=== PATIENT | female | born 1995 | race Two or more races ===

== ENCOUNTER 2017-03-19 14:51 | Emergency (ER) | payer MEDICAID ==
--- NOTE | 2017-03-19 16:00 | ED Physician Documentation ---
PD HPI ABD PAIN - Stated complaint Stated Complaint: ABD PX - Chief complaint Chief Complaint: Abd Pain - History obtained from History obtained from: Patient - History of Present Illness Timing - onset: How many days ago (3) Timing - duration: Days (3) Timing - details: Gradual onset Pain level max: 6 Pain level now: 4 Quality: Aching, Pain Location: Periumbilical (started periumbilical and moved to the RLQ) Radiation: Other (non-radiating) Improved by: Laying still Worsened by: Moving, Palpation Associated symptoms: Nausea. No: Fever, Vomiting, Hematemesis, Diarrhea, Constipation, Melena, Hematochezia, Dysuria, Hematuria, Chest pain, Vaginal bleeding, Vaginal dc Similar symptoms before: Has not had sx before Recently seen: Clinic (sent from clinic today for melissa morgan.) - Additional information Additional information: last ate yesterday, drank water 2 hrs [employer]. Review of Systems Ten Systems: 10 systems reviewed and negative Constitutional: denies: Fever, Chills Nose: denies: Rhinorrhea / runny nose, Congestion Throat: denies: Sore throat Cardiac: denies: Chest pain / pressure Respiratory: denies: Cough : reports: Control (nexplanon). denies: Dysuria, Frequency, Hesitancy, Incontinent, Hematuria, Discharge, Now EGA Musculoskeletal: denies: Neck pain, Back pain Neurologic: denies: Headache PD PAST MEDICAL HISTORY - Past Medical History Past Medical History: Yes : Other - Past Surgical History Past Surgical History: Yes - Present Medications Home Medications: Ambulatory Orders Medication Instructions Recorded Confirmed Control 1 applic INFIL TITR 01/05/16 03/19/17 - Allergies Allergies/Adverse Reactions: Allergies Allergy/AdvReac Type Severity Reaction Status Date / Time No Known Drug Allergies Allergy Verified 03/19/17 15:03 - Social History Does the pt smoke?: Yes Smoking Status: Current every day smoker Does the pt drink ETOH?: Yes Does the pt have substance abuse?: No Substance Use and Type: Marijuana - Immunizations Immunizations are current?: Yes - POLST Patient has POLST: No PD ED PE NORMAL - Vitals Vital signs reviewed: Yes - General General: Alert and oriented X 3, No acute distress - HEENT HEENT: Moist mucous membranes - Neck Neck: Supple, no meningeal sign - Cardiac Cardiac: RRR - Respiratory Respiratory: No respiratory distress, Clear bilaterally - Abdomen Abdomen: Other (TTP RLQ at [place] test. + rebound. no guarding. +rovising, - psoas. - obturator. + heel tap.) - Female Female : Pt declined - Rectal Rectal: Pt declined - Back Back: No CVA TTP - Derm Derm: Warm and dry, No rash - Neuro Neuro: Alert and oriented X 3 - Psych Psych: Normal mood, Normal affect Results - Vitals Vitals: Vital Signs - 24 hr 03/19/17 03/19/17 14:58 18:26 Temperature 36.6 C 36.7 C Heart Rate 83 75 Respiratory 16 15 Rate Blood Pressure 120/71 116/57 L O2 Saturation 100 99 Oxygen O2 Source Room air - Labs Labs: Laboratory Tests 03/19/17 03/19/17 03/19/17 15:05 16:06 16:06 WBC 8.9 RBC 4.26 Hgb 13.3 Hct 39.1 MCV 91.9 MCH 31.3 H MCHC 34.1 RDW 12.7 Plt Count 260 MPV 7.9 Neut # 5.0 Lymph # 3.0 [place] # 0.8 Eos # 0.0 Baso # 0.0 Absolute Nucleated RBC 0.00 Nucleated RBCs 0.0 Sodium 139 Potassium 4.1 Chloride 107 Carbon Dioxide 25 Anion Gap 7.0 BUN 14 Creatinine 0.6 Estimated GFR (MDRD) 129 Glucose 96 Calcium 9.1 Total Bilirubin 0.6 AST 23 ALT 16 Alkaline Phosphatase 67 Total Protein 7.2 Albumin 4.6 Globulin 2.6 Albumin/Globulin Ratio 1.8 Lipase 17 L Urine Color DARK YELLOW Urine Clarity CLEAR Urine pH 6.5 Ur Specific [place] 1.020 Urine Protein NEGATIVE Urine Glucose (UA) NEGATIVE Urine Ketones TRACE Urine Occult Blood NEGATIVE Urine Nitrite NEGATIVE Urine Bilirubin NEGATIVE Urine Urobilinogen 0.2 (NORMAL) Ur Leukocyte Esterase NEGATIVE Ur Microscopic Review NOT INDICATED Urine Culture Comments NOT INDICATED Urine HCG, Qual NEGATIVE - Rads (name of study) abd/pelvis CT Radiology: Prelim report reviewed, EMP read contemporaneously, See rad report ( No dilated loops of large or small intestine. Appendix is not seen although no gross focal inflammation is identified in the right lower quadrant. Visualization is somewhat limited due to extensive unopacified bowel in this area. Nonobstructing nephrolithiasis. ) PD MEDICAL DECISION MAKING - ED course Complexity details: reviewed results, re-evaluated patient, considered differential, d/w patient ED course: Patient presents to the emergency department with right lower quadrant abdominal pain. Concern for appendicitis. CT scan was nondiagnostic, though there was no inflammation identified in the right lower quadrant. Normal white blood cell count. Discussed with the patient options including observation, having the surgeon, and evaluate her in the emergency department or allowing her to return in 12-24 hours if her symptoms worsen. Patient elects to go home at this time and states she will return if she worsens. There does appear to be a large amount of stool in the right lower quadrant, magnesium citrate was given here. Patient declines a pelvic exam. No evidence of ovarian torsion. Tolerating p.o. without difficulty in the emergency department and she does feel hungry. Patient counseled regarding signs and symptoms for which I believe and urgent re-evaluation would be necessary. Patient with good understanding of and agreement to plan and is comfortable going home at this time This document was made in part using voice recognition software. While efforts are made to proofread this document, sound alike and grammatical errors may occur. Departure - Departure Disposition: 01 Home, Self Care Clinical Impression: Abdominal pain Qualifiers: Abdominal location: generalized Qualified Code(s): R10.84 - Generalized abdominal pain Condition: Good Instructions: ED Abdominal Pain Unkn Cause Follow-Up: your,doctor in 3 days [Other] Comments: Return if you worsen. The cause of your symptoms is unclear. Your appendix is not visualized on the CT scan tonight, but we do not see any evidence of inflammation. If you do not improve in the next 12-24 hours, you need to return for further evaluation. Return sooner if you worsen. Discharge Date/Time: 03/19/17 18:55
[2017-03-19 16:01] LABS: BILIRUBIN,URINE NEGATIVE (NEGATIVE); PH,URINE 6.5 PH (5.0-7.5)
[2017-03-19 16:03] LABS: UA CHARGE (STRIP ONLY) YES; UR CULTURE IF IND NOT INDICATED
[2017-03-19 16:04] LABS: HCG UR QUAL NEGATIVE
[2017-03-19] MEDS: SODIUM CHLORIDE 0.9% 1,000 ML IV ONE (16:09)
[2017-03-19 16:17] LABS: BASOPHILS % (AUTO) 0.5 %; EOSINOPHILS % (AUTO) 0.5 %; HCT - HEMATOCRIT 39.1 % (37.0-47.0); HGB - HEMOGLOBIN 13.3 g/dL (12.0-16.0); LYMPHOCYTES % (AUTO) 33.7 %; MEAN CORPUSCULAR HEMOGLOBIN 31.3 pg (27.0-31.0); MEAN CORPUSCULAR HGB CONC 34.1 g/dL (32.0-36.0); MEAN CORPUSCULAR VOLUME 91.9 fL (81.0-99.0); MEAN PLATELET VOLUME 7.9 fL (7.9-10.8); MONOCYTES # (AUTO) 0.8 10^3/uL (0.0-1.0); MONOCYTES % (AUTO) 8.8 %; NEUTROPHILS % (AUTO) 56.5 %; RED BLOOD COUNT 4.26 10^6/uL (4.20-5.40); RED CELL DISTRIBUTION WIDTH 12.7 % (12.0-15.0); UNCORRECTED WHITE BLOOD COUNT 8.9 x10^3/uL; WHITE BLOOD COUNT 8.9 x10^3/uL (4.8-10.8)
[2017-03-19 16:27] LABS: ALBUMIN/GLOBULIN RATIO 1.8 (1.0-2.2); BILIRUBIN,TOTAL 0.6 mg/dL (0.2-1.0); CALCIUM 9.1 mg/dL (8.5-10.3); CREATININE 0.6 mg/dL (0.4-1.0); POTASSIUM 4.1 mmol/L (3.5-5.0); TOTAL PROTEIN 7.2 g/dL (6.7-8.2)
[2017-03-19] MEDS: IOPAMIDOL-300 100 ML VIAL IVP ONE (17:09)
[2017-03-19 18:27] VITALS: BP 116/57
--- NOTE | 2017-03-19 18:34 | CT Preliminary Report ---
Exam: CT Abdomen/Pelvis W/ IMPRESSION: 1. No dilated loops of large or small intestine. Appendix is not seen although no gross focal inflamm ation is identified in the right lower quadrant. Visualization is somewhat limited due to extensive u nopacified bowel in this area. 2. Nonobstructing nephrolithiasis. [facility] SITE ID: [id number]
--- NOTE | 2017-03-19 18:37 | CT Report ---
EXAM: CT ABDOMEN AND PELVIS EXAM DATE: 03/19/2017 05:11 PM. CLINICAL HISTORY: Right lower quadrant abdominal pain COMPARISONS: Abdomen and pelvis CT 03/28/2015. TECHNIQUE: Routine helical CT imaging was performed through the abdomen and pelvis. IV contrast: 100 cc Isovue-300. Enteric contrast: No. Reconstructions: Coronal and sagittal. In accordance with CT protocol optimization, one or more of the following dose reduction techniques w ere utilized for this exam: automated exposure control, adjustment of mA and/or KV based on patient s ize, or use of iterative reconstructive technique. FINDINGS: Lung Bases: Unremarkable. Liver: Normal. No masses. Gallbladder/Bile Ducts: Unremarkable. Spleen: Normal. Pancreas: Normal. Adrenal Glands: Normal. Kidneys: Symmetric renal enhancement with bilateral cysts redemonstrated. 2 mm nonobstructing stone l ower pole right kidney. Peritoneal Cavity/Bowel: The stomach is unremarkable. There are no dilated loops of large or small in testine. The appendix is not well seen with multiple unopacified loops of bowel within the pelvis. Pelvic Organs: Normal. The bladder and visualized pelvic organs are within normal limits. Vasculature: No aneurysms or other significant abnormality. Bones: No significant abnormality. Other: None. IMPRESSION: 1. No dilated loops of large or small intestine. Appendix is not seen although no gross focal inflamm ation is identified in the right lower quadrant. Visualization is somewhat limited due to extensive u nopacified bowel in this area. 2. Nonobstructing nephrolithiasis. [facility] Referring Provider Line: [phone] SITE ID: [id number]
[2017-03-19] MEDS ORDERED: MAGNESIUM CITRATE 296 ML BOTTLE ONE (18:43)
[2017-03-19] MEDS: MAGNESIUM CITRATE 296 ML BOTTLE PO STA (18:45)
== END 2017-03-19 18:55 | disposition home or self-care (01) ==
LOC: ED 14:51
DX: R10.33 Periumbilical pain (principal); F17.200 Nicotine dependence, unspecified, uncomplicated
CPT/HCPCS: 74177; 80053; 81001; 81003; 81025; 83690; 85025; 87086; 99283; 99284

== ENCOUNTER 2017-06-22 08:02 | Emergency (ER) | payer MEDICAID ==
[2017-06-22 08:37] LABS: BILIRUBIN,URINE NEGATIVE (NEGATIVE)
--- NOTE | 2017-06-22 08:42 | ED Physician Documentation ---
PD HPI ABD PAIN - Stated complaint Stated Complaint: SEVERE KIDNEY PX - Chief complaint Chief Complaint: Abd Pain - History obtained from History obtained from: Patient - Additional information Additional information: Patient is a 21-year-old female with history of possible potty cystic kidney disease. Polycystic kidney disease. She presents with a complaint of right- sided flank pain onset this morning acutely. She complains of nausea without vomiting. There is no preceding complaints and she has no fever or chills although on occasion she has felt diaphoretic. There is no lower urinary symptoms she denies the possibility of being . There is no complaints of gynecologic or lower abdominal pain. Review of systems: For pertinent positive and negatives in the review of systems please see the history of present illness, otherwise all other systems have been reviewed and are negative. Dragon disclaimer: Parts of this medical record were created using voice recognition technology. Because of the inherent limitations of this system, occasional same sounding word substitutions do occur and persist despite proofreading. Please read the document for context. Review of Systems Constitutional: denies: Fever, Chills GI: reports: Abdominal Pain, Nausea. denies: Abdominal Swelling PD PAST MEDICAL HISTORY - Past Medical History : Other Other Past Medical History: cystic kidney disease - Past Surgical History Past Surgical History: Yes - Present Medications Home Medications: Ambulatory Orders Medication Instructions Recorded Confirmed Ibuprofen 600 mg PO TID PRN #10 tablet 06/22/17 traMADol [Ultram] 50 mg PO Q4-6H #12 tablet 06/22/17 - Allergies Allergies/Adverse Reactions: Allergies Allergy/AdvReac Type Severity Reaction Status Date / Time No Known Drug Allergies Allergy Verified 06/22/17 08:08 - Social History Does the pt smoke?: Yes Smoking Status: Current every day smoker Does the pt drink ETOH?: Yes Does the pt have substance abuse?: No - Immunizations Immunizations are current?: Yes - POLST Patient has POLST: No PD ED PE NORMAL - General General: Alert and oriented X 3, Well developed/nourished, Other (Young female lying in the bed. She is complaining of pain to the right flank and appears uncomfortable) - HEENT HEENT: Atraumatic, PERRL - Neck Neck: Supple, no meningeal sign - Cardiac Cardiac: RRR, No murmur - Respiratory Respiratory: No respiratory distress, Clear bilaterally - Abdomen Abdomen: Normal bowel sounds, Soft, Non tender, Non distended - Back Back: No CVA TTP, No spinal TTP - Derm Derm: Normal color - Extremities Extremities: No deformity, No tenderness to palpate - Neuro Neuro: Alert and oriented X 3 Results - Vitals Vitals: Vital Signs - 24 hr 06/22/17 06/22/17 06/22/17 08:06 08:25 09:03 Temperature 35.5 C L Heart Rate 75 58 L Respiratory 26 H 16 Rate Blood Pressure 138/91 H 99/57 L O2 Saturation 100 98 06/22/17 06/22/17 11:00 12:46 Temperature Heart Rate 57 L 54 L Respiratory 16 12 Rate Blood Pressure 99/48 L 108/61 O2 Saturation 99 99 Oxygen O2 Source Room air - Labs Labs: Laboratory Tests 06/22/17 06/22/17 06/22/17 08:19 08:19 08:25 WBC 13.2 H RBC 4.32 Hgb 13.4 Hct 40.2 MCV 93.0 MCH 31.0 MCHC 33.3 RDW 12.6 Plt Count 341 MPV 7.4 L Neut # 6.1 Lymph # 5.8 H [place] # 1.1 H Eos # 0.1 Baso # 0.0 Absolute Nucleated RBC 0.01 Band Neuts % (Manual) Not Reportable Nucleated RBCs 0.1 Differential Comment MANUAL=AUTO DIFF Platelet Estimate NORMAL (130-450,000) Platelet Morphology NORMAL APPEARANCE RBC Morph Micro Appear NORMAL APPEARANCE Sodium 139 Potassium 3.5 Chloride 109 Carbon Dioxide 21 Anion Gap 9.0 BUN 13 Creatinine 0.7 Estimated GFR (MDRD) 108 Glucose 127 H Calcium 9.2 Total Bilirubin 0.7 AST 15 ALT 12 Alkaline Phosphatase 74 Total Protein 7.5 Albumin 4.5 Globulin 3.0 Albumin/Globulin Ratio 1.5 Lipase 19 L Urine Color YELLOW Urine Clarity CLEAR Urine pH 6.0 Ur Specific [place] >=1.030 H Urine Protein 30 H Urine Glucose (UA) NEGATIVE Urine Ketones NEGATIVE Urine Occult Blood LARGE H Urine Nitrite NEGATIVE Urine Bilirubin NEGATIVE Urine Urobilinogen 0.2 (NORMAL) Ur Leukocyte Esterase NEGATIVE Urine RBC TNTC H Urine WBC 4-5 Ur Squamous Epith Cells FEW Squamous Urine Bacteria Moderate H Urine Mucus Moderate Strands Ur Microscopic Review INDICATED Urine Culture Comments INDICATED Urine HCG, Qual 06/22/17 08:25 WBC RBC Hgb Hct MCV MCH MCHC RDW Plt Count MPV Neut # Lymph # [place] # Eos # Baso # Absolute Nucleated RBC Band Neuts % (Manual) Nucleated RBCs Differential Comment Platelet Estimate Platelet Morphology RBC Morph Micro Appear Sodium Potassium Chloride Carbon Dioxide Anion Gap BUN Creatinine Estimated GFR (MDRD) Glucose Calcium Total Bilirubin AST ALT Alkaline Phosphatase Total Protein Albumin Globulin Albumin/Globulin Ratio Lipase Urine Color Urine Clarity Urine pH Ur Specific [place] >1.030 Urine Protein Urine Glucose (UA) Urine Ketones Urine Occult Blood Urine Nitrite Urine Bilirubin Urine Urobilinogen Ur Leukocyte Esterase Urine RBC Urine WBC Ur Squamous Epith Cells Urine Bacteria Urine Mucus Ur Microscopic Review Urine Culture Comments Urine HCG, Qual NEGATIVE PD MEDICAL DECISION MAKING - ED course Complexity details: reviewed old records, reviewed results, re-evaluated patient , considered differential, d/w patient, d/w family ED course: And is a 89-year-old female with history of polycystic kidney disease. On [address] scan she also had a small stone consistent with nephrolithiasis however she has never had read urolithiasis. She presents with acute onset of right- sided abdominal pain starting this morning the pain is in the right flank on exam she appears uncomfortable but otherwise has a fairly benign abdominal examination. She is already had 2 [address] scans that we know about so I wanted to avoid ionizing radiations on ultrasound was done. The right kidney is without hydronephrosis and there is a good jet of urine. Her blood work is significant only for mild elevation of her white blood cell count at 13 and her urine does show evidence of dehydration and a numerous RBCs without evidence of infection. This could be related to polycystic kidney disease, the passage of a small stone or perhaps a residual small stone not causing hydronephrosis. Symptomatically the patient is much better. These findings were discussed with the patient and at this point in time she will be discharged home. Disposition: To home Clinical impression: 1. Sided flank pain with hematuria-suspect small ureterolithiasis Departure - Departure Disposition: Home, Self Care Clinical Impression: Hematuria Condition: Good Instructions: Hematuria Poss Causes, ED Abdominal Pain Unkn Cause, ED Hematuria Follow-Up: [facility] [Provider Group] Prescriptions: Ibuprofen 600 mg PO TID PRN #10 tablet PRN Reason: Pain traMADol [Ultram] 50 mg PO Q4-6H #12 tablet
[2017-06-22 08:43] LABS: UA w/ MICROSCOPIC CHARGE YES
[2017-06-22 08:47] LABS: HCG UR QUAL NEGATIVE
[2017-06-22 08:49] LABS: BASOPHILS % (AUTO) 0.3 %; EOSINOPHILS # (AUTO) 0.1 10^3/uL (0.0-0.7); EOSINOPHILS % (AUTO) 0.8 %; HCT - HEMATOCRIT 40.2 % (37.0-47.0); HGB - HEMOGLOBIN 13.4 g/dL (12.0-16.0); LYMPHOCYTES # (AUTO) 5.8 10^3/uL (1.5-3.5); LYMPHOCYTES % (AUTO) 43.9 %; MEAN CORPUSCULAR HGB CONC 33.3 g/dL (32.0-36.0); MEAN PLATELET VOLUME 7.4 fL (7.9-10.8); MONOCYTES # (AUTO) 1.1 10^3/uL (0.0-1.0); MONOCYTES % (AUTO) 8.6 %; NEUTROPHILS # (AUTO) 6.1 10^3/uL (1.5-6.6); NEUTROPHILS % (AUTO) 46.4 %; NUCLEATED RED BLOOD CELLS AUTO 0.1 /100WBC; RED BLOOD COUNT 4.32 10^6/uL (4.20-5.40); RED CELL DISTRIBUTION WIDTH 12.6 % (12.0-15.0); UNCORRECTED WHITE BLOOD COUNT 13.2 x10^3/uL; WHITE BLOOD COUNT 13.2 x10^3/uL (4.8-10.8)
[2017-06-22] MEDS ORDERED: SODIUM CHLORIDE FLUSH 0.9% 10 ML SYRINGE IVP ONE (08:51)
[2017-06-22] MEDS ORDERED: HYDROmorphone 1 MG/ML SYRINGE ONE (08:51)
[2017-06-22] MEDS ORDERED: ONDANSETRON 4 MG/2 ML VIAL ONE (08:51)
[2017-06-22] MEDS: SODIUM CHLORIDE 0.9% 1,000 ML IV ONE (08:52)
[2017-06-22 08:53] LABS: ALBUMIN/GLOBULIN RATIO 1.5 (1.0-2.2); BILIRUBIN,TOTAL 0.7 mg/dL (0.2-1.0); CALCIUM 9.2 mg/dL (8.5-10.3); CREATININE 0.7 mg/dL (0.4-1.0); POTASSIUM 3.5 mmol/L (3.5-5.0); TOTAL PROTEIN 7.5 g/dL (6.7-8.2)
[2017-06-22] MEDS: ONDANSETRON 4 MG/2 ML VIAL IVP STA (08:53)
[2017-06-22] MEDS: HYDROmorphone 1 MG/ML SYRINGE IVP STA (08:53)
[2017-06-22 09:24] LABS: UR CULTURE IF IND INDICATED
[2017-06-22 09:45] LABS: NP AUTO DIFFERENTIAL? NO; NP MAN DIFFERENTIAL? YES; PLATELET ESTIMATE, MANUAL NORMAL (130-450,000) (NORMAL); PLATELET MORPHOLOGY NORMAL APPEARANCE (NORMAL)
--- NOTE | 2017-06-22 11:14 | Ultrasound Report ---
RIGHT UPPER QUADRANT ULTRASOUND: 06/22/2017 CLINICAL INDICATION: Right-sided pain, hematuria. TECHNIQUE: Real-time scanning was performed with operations support representative static images obtained. FINDINGS: The liver measures 16 cm. Hepatic echogenicity is normal. No intrahepatic biliary dilata tion or focal parenchymal lesion is present. The common bile duct measures 4 mm. The gallbladder is normal. The right kidney measures 11.4 cm, and appears unremarkable. The right ureteral jet was vi sualized in the urinary bladder, excluding complete obstruction. IMPRESSION: NORMAL RIGHT UPPER QUADRANT ULTRASOUND. NO RIGHT HYDRONEPHROSIS. JOB #: [id number] EXT JOB #:[id number]
[2017-06-22] MEDS: KETOROLAC 30 MG/ML VIAL IVP STA (12:00)
[2017-06-22] MEDS ORDERED: KETOROLAC 30 MG/ML VIAL ONE (12:01)
[2017-06-22 13:08] VITALS: BP 106/65
== END 2017-06-22 13:10 | disposition home or self-care (01) ==
LOC: ED 08:02
DX: R31.9 Hematuria, unspecified (principal); Q61.3 Polycystic kidney, unspecified; F17.200 Nicotine dependence, unspecified, uncomplicated
CPT/HCPCS: 36415; 76705; 80053; 81001; 81025; 83690; 85025; 87086; 96361; 96374; 96375; 99284; J1170; 81003

== ENCOUNTER 2017-10-13 22:31 | Emergency (ER) | payer MEDICAID ==
[2017-10-13] MEDS ORDERED: ALBUTEROL NEB 2.5 MG/3 ML INH STA (22:40)
[2017-10-13] MEDS ORDERED: ALBUTEROL NEB 2.5 MG/3 ML INH ONE (22:52)
--- NOTE | 2017-10-13 22:55 | ED Physician Documentation ---
PD HPI URI - Stated complaint Stated Complaint: COUGH/WHEEZY - Chief complaint Chief Complaint: Resp - History obtained from History obtained from: Patient, Family - History of Present Illness Timing - onset: Yesterday Timing details: Gradual onset, Still present Associated symptoms: Nasal congestion, Rhinorrhea, Sore throat, Productive cough. No: Fever, Chills Contributing factors: Sick contact Similar symptoms before: Has not had sx before Recently seen: Not recently seen - Additional information Additional information: Patient is a 21 year old female with no significant past medical history who is presenting to the emergency department for cough and wheezing. Patient states that she drank out of the same cup as her mother who has bronchitis. Patient states that she was in the hospital so she just wanted to come to the emergency department to come get checked out. Review of Systems Constitutional: denies: Fever, Chills Eyes: denies: Decreased vision, Discharge, Irritation Ears: denies: Ear pain, Drainage/discharge Nose: reports: Congestion, Sinus pressure / pain Throat: denies: Dental pain / toothache, Sore throat Cardiac: denies: Palpitations Respiratory: reports: Cough, Wheezing GI: denies: Nausea, Vomiting : reports: Reviewed and negative Skin: denies: Rash, Lesions Musculoskeletal: denies: Neck pain, Back pain Immunocompromised: denies: Immunocompromised PD PAST MEDICAL HISTORY - Past Medical History Past Medical History: Yes : Other - Past Surgical History Past Surgical History: Yes - Present Medications Home Medications: Ambulatory Orders Medication Instructions Recorded Confirmed Ibuprofen 600 mg PO TID PRN #10 tablet 06/22/17 traMADol [Ultram] 50 mg PO Q4-6H #12 tablet 06/22/17 Albuterol Sulfate [Proventil Hfa 1 - 2 puffs INH Q4H PRN #1 inhaler 10/13/17 Inhaler] - Allergies Allergies/Adverse Reactions: Allergies Allergy/AdvReac Type Severity Reaction Status Date / Time No Known Drug Allergies Allergy Verified 10/13/17 22:40 - Social History Does the pt smoke?: Yes Smoking Status: Current every day smoker Does the pt drink ETOH?: Yes Does the pt have substance abuse?: Yes Substance Use and Type: Marijuana - Immunizations Immunizations are current?: Yes - POLST Patient has POLST: No PD ED PE NORMAL - Vitals Vital signs reviewed: Yes - General General: Alert and oriented X 3, No acute distress, Well developed/nourished - HEENT HEENT: Atraumatic, PERRL, Moist mucous membranes, Pharynx benign, Dentition benign - Neck Neck: Supple, no meningeal sign - Cardiac Cardiac: RRR, No murmur - Respiratory Respiratory: No respiratory distress, Clear bilaterally - Abdomen Abdomen: Soft, Non tender, Non distended - Derm Derm: Normal color, Warm and dry, No rash - Extremities Extremities: No deformity, Normal ROM s pain, No edema, No calf tenderness / cord - Neuro Neuro: Alert and oriented X 3, No motor deficit, No sensory deficit, Normal speech - Psych Psych: Normal mood Results - Vitals Vitals: Vital Signs - 24 hr 10/13/17 22:35 Temperature 36.9 C Heart Rate 102 H Respiratory 17 Rate Blood Pressure 145/66 H O2 Saturation 99 Oxygen O2 Source Room air PD MEDICAL DECISION MAKING - ED course Complexity details: reviewed old records, reviewed results, re-evaluated patient , considered differential, d/w patient ED course: Patient was seen and examined at bedside. patient was well appearing and in no distress. Patient was treated with a nebulizer treatment and stated that she felt a bit better. Patient had normal vital signs, and was well appearing. Further diagnostics, treatment or imaging were not indicated at this time. Patient required no further work up and was stable for discharge with outpatient follow up. Departure - Departure Disposition: 01 Home, Self Care Clinical Impression: Upper respiratory tract infection Condition: Good Instructions: ED Viral Syndrome Follow-Up: primary,care provider [Other] - As Needed Prescriptions: Albuterol Sulfate [Proventil Hfa Inhaler] 1 - 2 puffs INH Q4H PRN #1 inhaler PRN Reason: Shortness Of Air/Wheezing Comments: Your symptoms are normally viral in nature and self limited. it is important that you drink plenty of fluids and get plenty of rest. You can take over the counter cough and cold medicine and use the inhaler as needed for wheezing. It is important that you refrain from smoking or other allergens. You should follow up with your doctor if your symptoms persist. You may return to the emergency department at any time for new, worsening or uncontrollable symptoms.
[2017-10-13 23:16] VITALS: BP 130/63
== END 2017-10-13 23:15 | disposition home or self-care (01) ==
LOC: ED 22:31
DX: J06.9 Acute upper respiratory infection, unspecified (principal); F17.200 Nicotine dependence, unspecified, uncomplicated
CPT/HCPCS: 94640; 99283; J7613

== ENCOUNTER 2017-10-14 11:00 | Outpatient (CLI) | payer MEDICAID | END 2017-10-14 11:01 | disposition home or self-care (01) | LOC: LAB.R 11:00 | PROVIDERS: ATTEND Registered Nurse | DX: Z11.3 Encounter for screening for infections with a predominantly sexual mode of transmission (principal) | CPT/HCPCS: 87491; 87591 ==

== ENCOUNTER 2018-07-28 04:27 | Emergency (ER) | payer MEDICAID ==
[2018-07-28 04:53] LABS: BILIRUBIN,URINE NEGATIVE (NEGATIVE); GLUCOSE, URINE (UA) NEGATIVE (NEGATIVE); KETONES,URINE (UA) 15 mg/dL (NEGATIVE); LEUKOCYTE ESTERASE, URINE NEGATIVE (NEGATIVE); NITRITE,URINE NEGATIVE (NEGATIVE); OCCULT BLOOD,URINE NEGATIVE (NEGATIVE); PH,URINE 5.5 PH (5.0-7.5); PROTEIN,URINE NEGATIVE (NEGATIVE); UROBILINOGEN,URINE 0.2 (NORMAL) E.U./dL (NORMAL)
[2018-07-28 04:54] LABS: CLARITY,URINE CLEAR (CLEAR); HCG UR QUAL NEGATIVE
[2018-07-28] MEDS ORDERED: ONDANSETRON 4 MG/2 ML VIAL IVP STA ×2 (05:12→05:31)
[2018-07-28] MEDS ORDERED: LIDOCAINE VISCOUS 2% 15 ML UDC MM STA (05:12)
[2018-07-28] MEDS ORDERED: MAG HYDROX/AL HYDROX/SIMETH 30 ML UDC PO STA (05:13)
[2018-07-28] MEDS ORDERED: PHENobarb/HYOSCY/ATROPINE/SCOP 5 ML UDC PO STA (05:13)
[2018-07-28 05:20] LABS: ALBUMIN 4.8 g/dL (3.2-5.5); ALBUMIN/GLOBULIN RATIO 1.8 (1.0-2.2); BILIRUBIN,TOTAL 0.6 mg/dL (0.2-1.0); CALCIUM 9.3 mg/dL (8.5-10.3); CREATININE 0.5 mg/dL (0.4-1.0); TOTAL PROTEIN 7.4 g/dL (6.7-8.2)
[2018-07-28 05:24] LABS: BASOPHILS % (AUTO) 0.3 %; EOSINOPHILS % (AUTO) 2.5 %; HGB - HEMOGLOBIN 13.1 g/dL (12.0-16.0); LYMPHOCYTES % (AUTO) 20.3 %; MEAN CORPUSCULAR HEMOGLOBIN 31.1 pg (27.0-31.0); MEAN CORPUSCULAR HGB CONC 33.5 g/dL (32.0-36.0); MEAN PLATELET VOLUME 7.8 fL (7.9-10.8); MONOCYTES % (AUTO) 8.7 %; NEUTROPHILS % (AUTO) 68.2 %; PLT - PLATELET COUNT 279 10^3/uL (130-450); RED CELL DISTRIBUTION WIDTH 12.7 % (12.0-15.0); WHITE BLOOD COUNT 18.1 x10^3/uL (4.8-10.8)
[2018-07-28 05:26] LABS: MUDS CUTOFF CONCENTRATIONS CUTOFF CONC BELOW:
[2018-07-28 05:28] LABS: ABNORMAL LYMPHS % (MANUAL) 0 %; BAND NEUTROPHILS % (MANUAL) 0 %
[2018-07-28] MEDS ORDERED: SODIUM CHLORIDE 0.9% 1,000 ML IV ONE (05:31)
[2018-07-28 05:32] LABS: AMPHETAMINE SCREEN,URINE NEGATIVE (NEGATIVE); BENZODIAZEPINES SCREEN, URINE NEGATIVE (NEGATIVE); COCAINE SCREEN URINE NEGATIVE (NEGATIVE); METHADONE SCREEN, URINE NEGATIVE (NEGATIVE); METHAMPHETAMINES SCREEN, URINE NEGATIVE (NEGATIVE); OPIATE SCREEN, URINE NEGATIVE (NEGATIVE); PROPOXYPHENE SCREEN, URINE NEGATIVE (NEGATIVE); TRICYCLIC ANTIDEPRESSANT,URINE NEGATIVE (NEGATIVE)
--- NOTE | 2018-07-28 05:32 | ED Physician Documentation ---
PD HPI ABD PAIN - Stated complaint Stated Complaint: ABD PAIN - Chief complaint Chief Complaint: Abd Pain - History obtained from History obtained from: Patient - History of Present Illness Timing - onset: Yesterday Timing - details: Gradual onset, Still present Quality: Cramping, Sharp, Indigestion Location: Epigastric Worsened by: Eating Associated symptoms: Nausea. No: Fever, Vomiting, Diarrhea, Constipation Similar symptoms before: No diagnosis Recently seen: Not recently seen - Additional information Additional information: Patient is a 22 year old female who is presenting to the emergency department for abdominal pain. Patient states that the symptoms started last night after work. patient reports that the pain is epigastric in nature. patient tried eating something to help the pain but it did not help. Review of Systems Ten Systems: 10 systems reviewed and negative Constitutional: denies: Fever, Chills GI: reports: Abdominal Pain, Nausea. denies: Vomiting, Constipation, Diarrhea : denies: Dysuria, Frequency PD PAST MEDICAL HISTORY - Past Medical History Past Medical History: No : Other - Past Surgical History Past Surgical History: Yes - Present Medications Home Medications: Ambulatory Orders Medication Instructions Recorded Confirmed Ibuprofen 600 mg PO TID PRN #10 tablet 06/22/17 traMADol [Ultram] 50 mg PO Q4-6H #12 tablet 06/22/17 Albuterol Sulfate [Proventil Hfa 1 - 2 puffs INH Q4H PRN #1 inhaler 10/13/17 Inhaler] Ondansetron Odt [Zofran] 4 mg TL Q6H PRN #14 tablet 07/28/18 Phenobarb/Hyoscy/Atropine/Scop 16.2 mg PO TID #100 ml 07/28/18 [ Elixir] - Allergies Allergies/Adverse Reactions: Allergies Allergy/AdvReac Type Severity Reaction Status Date / Time No Known Drug Allergies Allergy Verified 10/13/17 22:40 - Social History Does the pt smoke?: Yes Smoking Status: Current every day smoker Does the pt drink ETOH?: Yes Does the pt have substance abuse?: Yes Substance Use and Type: Marijuana - Immunizations Immunizations are current?: Yes - POLST Patient has POLST: No PD ED PE NORMAL - Vitals Vital signs reviewed: Yes - General General: Alert and oriented X 3, Well developed/nourished - HEENT HEENT: Atraumatic - Cardiac Cardiac: RRR - Respiratory Respiratory: No respiratory distress - Abdomen Abdomen: Soft - Derm Derm: Normal color, Warm and dry - Extremities Extremities: No deformity - Neuro Neuro: Alert and oriented X 3, No motor deficit, Normal speech Eye Opening: Spontaneous Motor: Obeys Commands Verbal: Oriented GCS Score: 15 PD ED PE EXPANDED - General General: Alert, In Pain - Abdomen Abdomen: Tender to palpation, Epigastric. No: Rebound, Guarding Results - Vitals Vitals: Vital Signs - 24 hr 07/28/18 07/28/18 04:31 05:47 Temperature 36.6 C 37.0 C Heart Rate 106 H 60 Respiratory 20 12 Rate Blood Pressure 130/75 107/55 L O2 Saturation 98 98 Oxygen O2 Source Room air - Labs Labs: Laboratory Tests 07/28/18 07/28/18 07/28/18 04:40 04:40 04:40 WBC 18.1 H RBC 4.20 Hgb 13.1 Hct 39.0 MCV 93.0 MCH 31.1 H MCHC 33.5 RDW 12.7 Plt Count 279 MPV 7.8 L Neut # (Auto) Not Reportable Lymph # (Auto) Not Reportable [place] # (Auto) Not Reportable Eos # (Auto) Not Reportable Baso # (Auto) Not Reportable Absolute Nucleated RBC Not Reportable Total Counted 100 Band Neuts % (Manual) 0 Reactive Lymphs % (Man) 3 Abnorm Lymph % (Manual) 0 Nucleated RBC % Not Reportable Neutrophils # (Manual) 11.6 H Lymphocytes # (Manual) 3.1 Monocytes # (Manual) 2.0 H Eosinophils # (Manual) 1.1 H Basophils # (Manual) 0.4 H Differential Comment MANUAL DIFFERENTIAL Platelet Estimate NORMAL (130-450,000) RBC Morph Micro Appear NORMAL APPEARANCE Sodium 138 Potassium 3.6 Chloride 105 Carbon Dioxide 23 Anion Gap 10.0 BUN 13 Creatinine 0.5 Estimated GFR (MDRD) 157 Glucose 106 H Calcium 9.3 Total Bilirubin 0.6 AST 15 ALT 13 Alkaline Phosphatase 54 Total Protein 7.4 Albumin 4.8 Globulin 2.6 Albumin/Globulin Ratio 1.8 Lipase 24 Urine Color YELLOW Urine Clarity CLEAR Urine pH 5.5 Ur Specific [place] >=1.030 H Urine Protein NEGATIVE Urine Glucose (UA) NEGATIVE Urine Ketones 15 H Urine Occult Blood NEGATIVE Urine Nitrite NEGATIVE Urine Bilirubin NEGATIVE Urine Urobilinogen 0.2 (NORMAL) Ur Leukocyte Esterase NEGATIVE Ur Microscopic Review NOT INDICATED Urine Culture Comments NOT INDICATED Urine HCG, Qual NEGATIVE Urine Opiates Screen Ur Oxycodone Screen Urine Methadone Screen Ur Propoxyphene Screen Ur Barbiturates Screen Ur Tricyclics Screen Ur Phencyclidine Scrn Ur Amphetamine Screen U Methamphetamines Scrn U Benzodiazepines Scrn Urine Cocaine Screen U Cannabinoids Screen 07/28/18 04:40 WBC RBC Hgb Hct MCV MCH MCHC RDW Plt Count MPV Neut # (Auto) Lymph # (Auto) [place] # (Auto) Eos # (Auto) Baso # (Auto) Absolute Nucleated RBC Total Counted Band Neuts % (Manual) Reactive Lymphs % (Man) Abnorm Lymph % (Manual) Nucleated RBC % Neutrophils # (Manual) Lymphocytes # (Manual) Monocytes # (Manual) Eosinophils # (Manual) Basophils # (Manual) Differential Comment Platelet Estimate RBC Morph Micro Appear Sodium Potassium Chloride Carbon Dioxide Anion Gap BUN Creatinine Estimated GFR (MDRD) Glucose Calcium Total Bilirubin AST ALT Alkaline Phosphatase Total Protein Albumin Globulin Albumin/Globulin Ratio Lipase Urine Color Urine Clarity Urine pH Ur Specific [place] Urine Protein Urine Glucose (UA) Urine Ketones Urine Occult Blood Urine Nitrite Urine Bilirubin Urine Urobilinogen Ur Leukocyte Esterase Ur Microscopic Review Urine Culture Comments Urine HCG, Qual Urine Opiates Screen NEGATIVE Ur Oxycodone Screen NEGATIVE Urine Methadone Screen NEGATIVE Ur Propoxyphene Screen NEGATIVE Ur Barbiturates Screen NEGATIVE Ur Tricyclics Screen NEGATIVE Ur Phencyclidine Scrn NEGATIVE Ur Amphetamine Screen NEGATIVE U Methamphetamines Scrn NEGATIVE U Benzodiazepines Scrn NEGATIVE Urine Cocaine Screen NEGATIVE U Cannabinoids Screen POSITIVE H PD MEDICAL DECISION MAKING - ED course Complexity details: reviewed old records, reviewed results, re-evaluated patient, considered differential, d/w patient ED course: Patient was seen and examined at bedside. labs were drawn and urine ws collected. IV access was gained. Patient's UA was negative but there were ketones. Patient was treated with ns bolus, zofran, viscous lidocaine, donnatol and maalox. Patients pain improved significantly to a 2 out of 10. Patient did have a leukocytosis but no right upper quadrant pain or right lower quadrant pain. Imaging was discussed with the patient but patient has already had two CT of her abdomen. patient agreed to no imaging at this time. At discharge patient's was pain free. Patient required no further work up and was stable for discharge with outpatient follow up. - Sepsis Event Vital Signs: Vital Signs - 24 hr 07/28/18 07/28/18 04:31 05:47 Temperature 36.6 C 37.0 C Heart Rate 106 H 60 Respiratory 20 12 Rate Blood Pressure 130/75 107/55 L O2 Saturation 98 98 Oxygen O2 Source Room air Departure - Departure Disposition: 01 Home, Self Care Clinical Impression: Abdominal pain Condition: Good Instructions: ED Epigastric Pain [facility] Follow-Up: Radha Bennett ARNP [Primary Care Provider] - Within 3 Days Prescriptions: Ondansetron Odt [Zofran] 4 mg TL Q6H PRN #14 tablet PRN Reason: Nausea / Vomiting Phenobarb/Hyoscy/Atropine/Scop [ Elixir] 16.2 mg PO TID #100 ml Comments: Your symptoms are likely being caused by gastritis. You should take zofran as needed and try to stay well hydrated. You can take tylenol, maalox or donnatol as needed for pain. You should return to the emergency for fevers, right upper quadrant pain, or right lower quadrant pain.
[2018-07-28 05:33] LABS: OXYCODONE SCREEN, URINE NEGATIVE (NEGATIVE)
[2018-07-28 05:58] LABS: BASOPHILS # (MANUAL) 0.4 10^3/uL (0-0.1); BASOPHILS % (MANUAL) 2 %; DIFFERENTIAL COMMENT MANUAL DIFFERENTIAL; EOSINOPHILS # (MANUAL) 1.1 10^3/uL (0-0.7); LYMPHOCYTES # (MANUAL) 3.1 10^3/uL (1.5-3.5); LYMPHOCYTES % (MANUAL) 14 %; NEUTROPHILS # (MANUAL) 11.6 10^3/uL (1.5-6.6); NEUTROPHILS % (MANUAL) 64 %; PLATELET ESTIMATE, MANUAL NORMAL (130-450,000) (NORMAL); RBC MORPHOLOGY (MULTIPLE) NORMAL APPEARANCE (NORMAL)
[2018-07-28 06:37] VITALS: BP 104/72
== END 2018-07-28 06:43 | disposition home or self-care (01) ==
LOC: ED 04:27
DX: R10.9 Unspecified abdominal pain (principal); D72.829 Elevated white blood cell count, unspecified; R11.0 Nausea; F17.200 Nicotine dependence, unspecified, uncomplicated
CPT/HCPCS: 36415; 80053; 80306; 81003; 81025; 83690; 85025; 96361; 96374; 99283; 99284; A9270; 81001; 87086

== ENCOUNTER 2019-01-27 17:13 | Emergency (ER) | payer SELFPAY ==
[2019-01-27 20:02] LABS: BILIRUBIN,URINE NEGATIVE (NEGATIVE); GLUCOSE, URINE (UA) NEGATIVE (NEGATIVE); KETONES,URINE (UA) 40 mg/dL (NEGATIVE); LEUKOCYTE ESTERASE, URINE NEGATIVE (NEGATIVE); NITRITE,URINE NEGATIVE (NEGATIVE); OCCULT BLOOD,URINE NEGATIVE (NEGATIVE); PROTEIN,URINE NEGATIVE (NEGATIVE); UROBILINOGEN,URINE 0.2 (NORMAL) E.U./dL (NORMAL)
[2019-01-27 20:08] LABS: CLARITY,URINE CLEAR (CLEAR); HCG UR QUAL NEGATIVE
[2019-01-27] MEDS ORDERED: SODIUM CHLORIDE 0.9% 1,000 ML IV ONE ×2 (20:15→22:10)
[2019-01-27] MEDS ORDERED: ONDANSETRON 4 MG/2 ML VIAL IVP STA (20:15)
--- NOTE | 2019-01-27 20:18 | ED Physician Documentation ---
PD HPI NVD - Stated complaint Stated Complaint: VOMITING - Chief complaint Chief Complaint: Abd Pain - History obtained from History obtained from: Patient, Family - History of Present Illness Timing - onset: Yesterday Timing - duration: Days (2) Timing - details: Abrupt onset, Still present, Still present in ED Associated symptoms: Fever, Dizzy Improved by: Vomiting Similar symptoms before: Has not had sx before Recently seen: Not recently seen - Additonal information Additional information: Previously well 23-year-old female is developed fever chills sore throat and vomiting. She has had significant nausea and has been unable to keep anything down all day today. She began with symptoms yesterday. She does have a mild cough as well. Review of Systems Constitutional: reports: Fever, Chills, Myalgias, Fatigue Eyes: denies: Decreased vision Ears: denies: Ear pain Nose: reports: Rhinorrhea / runny nose, Congestion Throat: reports: Sore throat Cardiac: denies: Chest pain / pressure, Palpitations Respiratory: reports: Cough. denies: Dyspnea GI: reports: Abdominal Pain, Nausea, Vomiting : denies: Dysuria, Frequency Skin: denies: Rash Musculoskeletal: denies: Neck pain, Back pain, Extremity pain Neurologic: reports: Generalized weakness. denies: Focal weakness, Numbness PD PAST MEDICAL HISTORY - Past Medical History : Other - Past Surgical History Past Surgical History: Yes - Present Medications Home Medications: Ambulatory Orders Medication Instructions Recorded Confirmed Albuterol Sulfate [Proventil Hfa 1 - 2 puffs INH Q4H PRN #1 inhaler 10/13/17 Inhaler] Promethazine [Phenergan] 25 mg PO Q6H PRN #10 tab 01/27/19 - Allergies Allergies/Adverse Reactions: Allergies Allergy/AdvReac Type Severity Reaction Status Date / Time No Known Drug Allergies Allergy Verified 10/13/17 22:40 - Social History Does the pt smoke?: Yes Smoking Status: Current every day smoker Does the pt drink ETOH?: Yes Does the pt have substance abuse?: Yes - Immunizations Immunizations are current?: Yes - POLST Patient has POLST: No PD ED PE NORMAL - Vitals Vital signs reviewed: Yes (tachy and hypertensive ) - General General: Alert and oriented X 3, Well developed/nourished, Other (appear sick leaning over the edge of the bed to vomit) - HEENT HEENT: Atraumatic, PERRL, EOMI, Ears normal, Other (dry mucous membranes ) - Neck Neck: Supple, no meningeal sign, No bony TTP - Cardiac Cardiac: No murmur, Other (tachy to 110) - Respiratory Respiratory: No respiratory distress, Clear bilaterally - Abdomen Abdomen: Soft, Other (mild epigastric tenderness ) - Back Back: No CVA TTP, No spinal TTP - Derm Derm: Normal color, Warm and dry, No rash - Extremities Extremities: No deformity, No edema - Neuro Neuro: Alert and oriented X 3, strategy director 2-12 intact, No motor deficit, No sensory deficit, Normal speech Eye Opening: Spontaneous Motor: Obeys Commands Verbal: Oriented GCS Score: 15 - Psych Psych: Other (mood is defeated ) Results - Vitals Vitals: Vital Signs - 24 hr 01/27/19 01/27/19 01/27/19 17:29 19:45 21:41 Temperature 36.8 C Heart Rate 105 H 85 94 Respiratory 22 16 16 Rate Blood Pressure 134/95 H 121/66 93/69 O2 Saturation 100 99 100 Oxygen O2 Source Room air - Labs Labs: Laboratory Tests 01/27/19 01/27/19 01/27/19 17:30 19:39 20:21 WBC 12.1 H RBC 3.98 L Hgb 12.9 Hct 36.6 L MCV 92.0 MCH 32.5 H MCHC 35.3 RDW 12.2 Plt Count 233 MPV 7.3 L Neut # (Auto) 10.8 H Lymph # (Auto) 0.2 L [place] # (Auto) 1.1 H Eos # (Auto) 0.0 Baso # (Auto) 0.0 Absolute Nucleated RBC 0.00 Nucleated RBC % 0.0 Sodium Potassium Chloride Carbon Dioxide Anion Gap BUN Creatinine Estimated GFR (MDRD) Glucose Calcium Total Bilirubin AST ALT Alkaline Phosphatase Total Protein Albumin Globulin Albumin/Globulin Ratio Lipase Urine Color YELLOW Urine Clarity CLEAR Urine pH 7.0 Ur Specific [place] 1.020 Urine Protein NEGATIVE Urine Glucose (UA) NEGATIVE Urine Ketones 40 H Urine Occult Blood NEGATIVE Urine Nitrite NEGATIVE Urine Bilirubin NEGATIVE Urine Urobilinogen 0.2 (NORMAL) Ur Leukocyte Esterase NEGATIVE Ur Microscopic Review NOT INDICATED Urine Culture Comments NOT INDICATED Urine HCG, Qual NEGATIVE Group A Strep Rapid Negative 01/27/19 20:21 WBC RBC Hgb Hct MCV MCH MCHC RDW Plt Count MPV Neut # (Auto) Lymph # (Auto) [place] # (Auto) Eos # (Auto) Baso # (Auto) Absolute Nucleated RBC Nucleated RBC % Sodium 137 Potassium 3.8 Chloride 106 Carbon Dioxide 21 Anion Gap 10.0 BUN 11 Creatinine 0.7 Estimated GFR (MDRD) 106 Glucose 104 H Calcium 9.5 Total Bilirubin 0.6 AST 17 ALT 11 Alkaline Phosphatase 49 Total Protein 7.5 Albumin 4.9 Globulin 2.6 Albumin/Globulin Ratio 1.9 Lipase 19 L Urine Color Urine Clarity Urine pH Ur Specific [place] Urine Protein Urine Glucose (UA) Urine Ketones Urine Occult Blood Urine Nitrite Urine Bilirubin Urine Urobilinogen Ur Leukocyte Esterase Ur Microscopic Review Urine Culture Comments Urine HCG, Qual Group A Strep Rapid Procedures - IVC sono (time) 2014 Bedside IVC sono: IVC measures (cm) (1.09), IVC collapsed c insp (cm) (complete), Dehydration (est 1-2 liter deficit) PD MEDICAL DECISION MAKING - ED course Complexity details: reviewed results, re-evaluated patient, considered differential, d/w patient, d/w family ED course: 23-year-old female with acute nausea and vomiting has severe retching and sounds like she has cyclical vomiting. She does admit to use of cannabis and may be to excess. She denies use of cannabis today. Here in the emergency department she is found to be dehydrated and intravenous fluids were administered as well as Zofran. This has no effect on her vomiting. She is administered Haldol 2 mg intravenously and following this she wants to go home. Departure - Departure Disposition: 01 Home, Self Care Clinical Impression: Dehydration Vomiting Qualifiers: Vomiting type: cyclical vomiting Vomiting Intractability: non-intractable Nausea presence: with nausea Qualified Code(s): G43.A0 - Cyclical vomiting, not intractable Condition: Stable Instructions: ED Dehydration, ED Nausea Vomiting Follow-Up: [facility] [Provider Group] Prescriptions: Promethazine [Phenergan] 25 mg PO Q6H PRN #10 tab PRN Reason: Nausea / Vomiting Comments: Today it appears this severe vomiting that you have may be related to cannabis. The recommendation is to reduce or eliminate your use of cannabis.
[2019-01-27 20:26] LABS: BASOPHILS % (AUTO) 0.3 %; HGB - HEMOGLOBIN 12.9 g/dL (12.0-16.0); LYMPHOCYTES # (AUTO) 0.2 10^3/uL (1.5-3.5); LYMPHOCYTES % (AUTO) 1.8 %; MEAN CORPUSCULAR HEMOGLOBIN 32.5 pg (27.0-31.0); MEAN CORPUSCULAR HGB CONC 35.3 g/dL (32.0-36.0); MEAN PLATELET VOLUME 7.3 fL (7.9-10.8); MONOCYTES # (AUTO) 1.1 10^3/uL (0.0-1.0); NEUTROPHILS # (AUTO) 10.8 10^3/uL (1.5-6.6); NEUTROPHILS % (AUTO) 88.9 %; PLT - PLATELET COUNT 233 10^3/uL (130-450); RED BLOOD COUNT 3.98 10^6/uL (4.20-5.40); RED CELL DISTRIBUTION WIDTH 12.2 % (12.0-15.0); WHITE BLOOD COUNT 12.1 x10^3/uL (4.8-10.8)
[2019-01-27 20:39] LABS: ALBUMIN 4.9 g/dL (3.2-5.5); ALBUMIN/GLOBULIN RATIO 1.9 (1.0-2.2); BILIRUBIN,TOTAL 0.6 mg/dL (0.2-1.0); CALCIUM 9.5 mg/dL (8.5-10.3); CREATININE 0.7 mg/dL (0.4-1.0); TOTAL PROTEIN 7.5 g/dL (6.7-8.2)
[2019-01-27] MEDS ORDERED: HALOPERIDOL 5 MG/ML VIAL IVP ONE (21:27)
[2019-01-27 21:42] VITALS: BP 93/69
[2019-01-27] MEDS ORDERED: PROMETHAZINE 25 MG TABLET PO STA (22:19)
== END 2019-01-27 22:37 | disposition home or self-care (01) ==
LOC: ED 17:13
DX: E86.0 Dehydration (principal); G43.A0 Cyclical vomiting, in migraine, not intractable; F12.90 Cannabis use, unspecified, uncomplicated; F17.200 Nicotine dependence, unspecified, uncomplicated
CPT/HCPCS: 36415; 80053; 81001; 81003; 81025; 83690; 85025; 87070; 87077; 87086; 87275; 87276; 87430; 96361; 96374; 96375; 99283

== ENCOUNTER 2019-10-30 15:00 | Outpatient (CLI) | payer OTHER ==
--- NOTE | 2019-10-31 15:18 | Ultrasound Report ---
Reason: TEST POSITIVE Procedure Date: 10/30/2019 Accession Number: [id number] / [id number] Procedure: US - OB First Trimester CPT Code: Final Report FULL RESULT: EXAM: FIRST TRIMESTER OBSTETRIC ULTRASOUND (Less than 11 weeks) EXAM DATE: 10/30/2019 04:23 PM. CLINICAL HISTORY: TEST POSITIVE. LMP: Unknown. COMPARISONS: None. TECHNIQUE: Transabdominal and transvaginal ultrasound examination with static image documentation. CLINICAL DATES: EGA 7 weeks 1 day with HOLLI 06/16/2020 based on LMP. ASSESSMENT: Gestational Sac: Single intrauterine. Mean gestational sac diameter: 17 mm = 6 weeks 4 days. Embryo: CRL (crown-rump length) 6 mm = 6 weeks 2 days. Cardiac activity: 116 beats per minute. Yolk sac: 4 mm. Amniotic fluid: Not accurately assessed at this gestational age. Early placenta: Not visible at this gestational age. Other: 1.3 x 0.5 cm perigestational fluid collection demonstrated. MATERNAL STRUCTURES: Uterus: Anteverted/. Unremarkable. Cervix: Closed. Right Ovary/Adnexa: The ovary measures 3 x 3.1 x 2.7 cm, volume 13.2 cc. Corpus pseudocyst 2.1 x 1.8 x 2.2 cm. Left Ovary/Adnexa: The ovary measures 2.1 x 1.8 x 2.2 cm, volume 4.2 cc. Unremarkable. Free Fluid: None. Other: None. IMPRESSION: 1. Single viable intrauterine at EGA 6 weeks 2 days with HOLLI 06/22/2020 based on crown-rump length, which is discordant with clinical dates of gestational age 7 weeks 1 day. RADIA
== END 2019-10-30 15:01 | disposition home or self-care (01) ==
LOC: DI 15:00
PROVIDERS: ATTEND Nurse Practitioner Obstetrics & Gynecology
DX: Z32.01 Encounter for pregnancy test, result positive (principal)
CPT/HCPCS: 76801; 76817

== ENCOUNTER 2019-11-07 08:00 | Outpatient (CLI) | payer OTHER ==
[2019-11-07 13:25] LABS: MUDS CUTOFF CONCENTRATIONS CUTOFF CONC BELOW:
[2019-11-07 13:39] LABS: AMPHETAMINE SCREEN,URINE NEGATIVE (NEGATIVE); BENZODIAZEPINES SCREEN, URINE NEGATIVE (NEGATIVE); COCAINE SCREEN URINE NEGATIVE (NEGATIVE); METHADONE SCREEN, URINE NEGATIVE (NEGATIVE); METHAMPHETAMINES SCREEN, URINE NEGATIVE (NEGATIVE); OPIATE SCREEN, URINE NEGATIVE (NEGATIVE); OXYCODONE SCREEN, URINE NEGATIVE (NEGATIVE); PROPOXYPHENE SCREEN, URINE NEGATIVE (NEGATIVE); TRICYCLIC ANTIDEPRESSANT,URINE NEGATIVE (NEGATIVE)
[2019-11-07 19:40] LABS: TRICHOMONAS VAGINALIS DNA NEGATIVE (NEGATIVE)
== END 2019-11-07 23:59 | disposition home or self-care (01) ==
LOC: LAB.R 08:00
PROVIDERS: ATTEND Nurse Practitioner Obstetrics & Gynecology
DX: Z36.89 Encounter for other specified antenatal screening (principal)
CPT/HCPCS: 80306; 87491; 87591; 87661

== ENCOUNTER 2019-11-07 13:04 | Outpatient (CLI) | payer OTHER ==
[2019-11-07 13:22] LABS: BASOPHILS % (AUTO) 0.4 %; EOSINOPHILS % (AUTO) 0.2 %; HGB - HEMOGLOBIN 11.8 g/dL (12.0-16.0); LYMPHOCYTES # (AUTO) 2.8 10^3/uL (1.5-3.5); LYMPHOCYTES % (AUTO) 24.5 %; MEAN CORPUSCULAR HEMOGLOBIN 32.2 pg (27.0-31.0); MEAN CORPUSCULAR HGB CONC 33.5 g/dL (32.0-36.0); MEAN CORPUSCULAR VOLUME 96.2 fL (81.0-99.0); MEAN PLATELET VOLUME 8.7 fL (7.9-10.8); MONOCYTES # (AUTO) 0.9 10^3/uL (0.0-1.0); MONOCYTES % (AUTO) 7.7 %; NEUTROPHILS # (AUTO) 7.6 10^3/uL (1.5-6.6); NEUTROPHILS % (AUTO) 66.8 %; PLT - PLATELET COUNT 262 10^3/uL (130-450); RED BLOOD COUNT 3.66 10^6/uL (4.20-5.40); WHITE BLOOD COUNT 11.4 x10^3/uL (4.8-10.8)
[2019-11-09 10:14] LABS: HIV AG/AB 4TH GEN NON-REACTIVE (NON-REACTIVE)
[2019-11-09 12:35] LABS: HEPATITIS B SURFACE ANTIGEN NON-REACTIVE (NON-REACTIVE)
[2019-11-09 14:30] LABS: HEPATITIS C ANTIBODY NON-REACTIVE (NON-REACTIVE)
== END 2019-11-07 13:05 | disposition home or self-care (01) ==
LOC: LAB 13:04
PROVIDERS: ATTEND Nurse Practitioner Obstetrics & Gynecology
DX: Z36.89 Encounter for other specified antenatal screening (principal)
CPT/HCPCS: 36415; 80306; 81599; 85025; 86592; 86762; 86803; 86850; 86900; 86901; 87340; 87389; 87491; 87591; 87661

== ENCOUNTER 2020-02-02 11:34 | Outpatient (CLI) | payer OTHER, MEDICAID ==
--- NOTE | 2020-02-04 02:42 | Ultrasound Report ---
Reason: SCREENING Procedure Date: 02/02/2020 Accession Number: [id number] / [id number] Procedure: US - OB Detailed Eval CPT Code: Final Report FULL RESULT: EXAM: COMPLETE OBSTETRICAL ULTRASOUND EXAM DATE: 02/02/2020 01:00 PM. CLINICAL HISTORY: anatomic survey. COMPARISON: 10/30/2019. TECHNIQUE: Real-time sonographic evaluation of the fetus performed by the contracts administrator. Multiple business center representative static images were saved for review. DATING: Established EGA 19 weeks 6 days with HOLLI 06/22/2020 based on provided dating. EGA 19 weeks 6 days with HOLLI 06/22/2020 based on previous ultrasound. EGA 19 weeks 6 days with HOLLI 06/22/2020 based on the current ultrasound. GENERAL EVALUATION [place] . Cardiac activity: 149 bpm. movement: Visualized. Presentation: Cephalic. Placenta: Anterior position. No evidence for previa. Umbilical cord: 3 vessel cord. Central placental cord origin. Amniotic fluid: Subjectively normal. MVP 4.8 cm. BIOMETRY Bi-Parietal Diameter (BPD): 4.7 cm, 20 weeks 2 days Head Circumference (HC): 17.2 cm, 19 weeks 6 days Abdominal Circumference (AC): 14.7 cm, 20 weeks 0 days Femur Length (FL): 3.3 cm, 20 weeks 2 days Estimated Weight: 335 g, 62nd percentile for 19 weeks 6 days. ANATOMY The intracranial structures, profile, face/nose/lips, spine, 4 chamber heart and outflow tracts, stomach, abdominal wall and cord insertion, diaphragm, kidneys, bladder, and extremities were visualized and demonstrate no abnormality. Mild bilateral renal pelviectasis. MATERNAL STRUCTURES Uterus: Unremarkable. Cervix: Long and closed. Transabdominal length 3.8 cm. Right ovary/adnexa: Unremarkable. Left ovary/adnexa: Unremarkable. Free fluid: None. IMPRESSION: 1. [place] live intrauterine with gestational age 19 weeks 6 days based on initial sonogram. 2. Estimated weight is within expected limits for assigned dating. 3. Normal anatomic survey. No anatomic abnormalities are detected at this time. 4. Mild bilateral renal pelviectasis. This should be followed up in the third trimester. RADIA
== END 2020-02-02 11:35 | disposition home or self-care (01) ==
LOC: DI 11:34
PROVIDERS: ATTEND Nurse Practitioner Obstetrics & Gynecology
DX: Z36.89 Encounter for other specified antenatal screening (principal); O36.8920 Maternal care for other specified fetal problems, second trimester, not applicable or unspecified; Z3A.19 19 weeks gestation of pregnancy
CPT/HCPCS: 76811

== ENCOUNTER 2021-06-30 19:24 | Outpatient (CLI) | payer MEDICAID | END 2021-06-30 19:25 | disposition home or self-care (01) | LOC: COV 19:24 | PROVIDERS: ATTEND Family Medicine | DX: U07.1 COVID-19 (principal) ==